=== PATIENT | male | born 1955 | race Caucasian/White ===

== ENCOUNTER 2020-12-12 13:34 | Inpatient (IN) | payer OTHER ==
[~2020-12-12] VITALS: Ht 177.8 cm; Wt 154.8 kg
[2020-12-12] VITALS (7 sets, daily range): BP systolic 114–144; BP diastolic 61–76
--- NOTE | ~2020-12-12 | EMS ---
[address] [address] EMS Patient Care Report Name: CAMERON GRIMALDO Room #: 205-P ADM IN M.R.#: [id number] Admission: 12/12/20 Attend Phys: Horacio Bradley MD Discharge: Date of : 59 Report #: [id number] THIS REPORT FOR: //name// Report Transmitted: 12/17/2020 14:36 EMS Care Summary [place], [place]/[facility] Incident [id number] @ 12/12/2020 13:06 Incident Location [id number] [place] [address] Patient CAMERON GRIMALDO Male, 65 Years 1955 Patient Address [address] [place], [place] [id number] Patient History Chronic Obstructive Pulmonary Disease (COPD),Diabetes,Hypertension (HTN),Tracheostomy,Dysphagia, Patient Allergies Penicillin allergy, Patient Medications Xarelto, Metoprolol, Furosemide, Amiodarone, [place], Chief Complaint AIRWAY BLOCKAGE Disposition Transported Lights/[place] Dispatch Reason Breathing Problem Transported To [facility] Narrative PT FOUND SITTING ON BED IN HIS ROOM AT [facility]. P28 ON SCENE. STAFF ON SCENE STATES THAT PT HAS A BLOCKAGE IN HIS TRACHEOSTOMY. STAFF STATES THEY HAVE ATTEMPTED TO [address] [address] EMS Patient Care Report Name: CAMERON GRIMALDO Room #: 205-P ADM IN .R.#: [id number] Admission: 12/12/20 Attend Phys: Horacio Bradley MD Discharge: Date of : 59 Report #: [id number] SUCTION PT MULTIPLE TIMES. STAFF STATES THAT THE BLOCKAGE IS TOO THICK FOR THEIR MANUAL OR MECHANICAL SUCTION. PT STATES THAT IT FEELS LIKE THE BLOCKAGE IS DEEP IN HIS AIRWAY. PT ABLE TO COUGH BUT IS UNABLE TO DISLODGE THE BLOCKAGE. PT HAS NO VISIBLE TRAUMA. EMS ELECTS TO TRANSPORT EMERGENCY TO CLOSEST FACILITY FOR HIGHER LEVEL OF AIRWAY MANAGEMENT. NO CHANGES NOTED ENROUTE. Initial Vitals @13:24P: 130,R: 22,BP: 200/105,Pain: 0/10,GCS: 15,SpO2: 100,Revised Trauma: 12, Assessments @13:19MENTAL:No Abnormalities,SKIN:No Abnormalities,HEENT:Head/Face: No Abnormalities,LUNG SOUNDS:General: No Abnormalities,ABDOMEN:General: No Abnormalities,PELVIS//GI:No Abnormalities,EXTREMITIES:PULSE:NEURO:No Abnormalities, Impression Foreign Body in Respiratory Tract Procedures @13:19ALS AssessmentResponse: UnchangedSucceeded@PTAOxygen FlowRate: 15 Device: Non Re-breather Mask (NRB) Response: UnchangedSucceeded@13:253-Lead ECGResponse: UnchangedSucceeded@13:21StretcherResponse: Unchanged Timeline REDIPPER,Oxygen FlowRate: 15 Device: Non Re-breather Mask (NRB) Response: UnchangedSucceeded, 13:04,Call Received 13:04,Dispatch Notified 13:06,Dispatched 13:07,En Route 13:17,On Scene 13:19,At Patient 13:19,ALS Assessment,Response: UnchangedSucceeded, 13:21,Stretcher,Response: Unchanged 13:24,Depart Scene 13:24,BP: 200/105 M,PULSE: 130,RR: 22 R,SPO2: 100 Ox,ETCO2: ,BG: ,PAIN: 0,GCS: 15, 13:25,3-Lead ECG,Response: UnchangedSucceeded, 13:30,At Destination 13:47,Call Closed Disclaimer v1.1 Copyright 2020 [employer] This EMS Care Summary contains data elements from the applicable legal record (which may be displayed differently). It is designed to provide pertinent information for the following purposes: continuity of care, clinical quality, [address] [place] [address] EMS Patient Care Report Name: CAMERON GRIMALDO Room #: 205-P ADM IN .R.#: [id number] Admission: 12/12/20 Attend Phys: Horacio Bradley MD Discharge: Date of : 59 Report #: [id number] and state data reporting. The complete legal record is available to ED staff and administrators of the receiving hospital in ES's Patient Tracker. All data is provided "as is."
[2020-12-12 13:57] LABS: HEMOGLOBIN 14.6 gm/dL (14.0-18.0)
[2020-12-12 13:59] LABS: ABSOLUTE NEUTROPHILS 4.1 thou/uL (1.4-8.2); BASOPHILS 1.2 % (0.0-2.0); EOSINOPHILS 6.6 % (0.0-3.0); HEMATOCRIT 45.5 % (42.0-52.0); MCH 31.2 pg (26.0-34.0); MCHC 32.2 g/dL (28.0-37.0); MONOCYTES 13.8 % (1.0-8.0); POLYS 58.4 % (36.0-66.0); RBC 4.69 mil/uL (4.50-6.00); RDW 18.6 % (10.5-14.5)
[2020-12-12 14:05] LABS: ANION GAP 10 mmol/L (7-16); BUN 12 mg/dL (7-18); CALCIUM 8.8 mg/dL (8.5-10.1); CHLORIDE 101 mmol/L (98-107); CO2 29 mmol/L (21-32); CREATININE 1.3 mg/dL (0.7-1.3); GLUCOSE 221 mg/dL (74-106); POTASSIUM 3.8 mmol/L (3.5-5.1); SODIUM 140 mmol/L (136-145)
[2020-12-12 14:15] LABS: ALBUMIN 3.2 g/dL (3.4-5.0); MAGNESIUM 2.2 mg/dL (1.8-2.4); SGOT 18 U/L (15-37); SGPT 18 U/L (30-65); TOTAL BILIRUBIN 0.9 mg/dL (0.2-1.0); TOTAL PROTEIN 8.3 g/dL (6.4-8.2); TROPONIN-I <0.06 ng/mL (<0.06)
--- NOTE | 2020-12-12 15:26 | EKG ---
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 : 1955 Requested By: Grayson Pelletier Order Number: [id number] MD: Gilbert Blanhcard Measurements Intervals [place] Rate: 118 P: VA: QRS: 134 QRSD: 114 T: 6 QT: 381 QTc: 535 Interpretive Statements Atrial fibrillation Low voltage, extremity leads Probable anteroseptal infarct, old Prolonged QT interval No previous ECG available for comparison Electronically Signed On 12-12-2020 15:26:18 CDT by Gilbert Blanchard [email or web address] <ELECTRONICALLY SIGNED> By: Gilbert Blanchard MD, [facility] 12/12/20 1526 1347 46 Gilbert Blanchard MD, FAC /EPI
[2020-12-12 15:28] LABS: BE(vivo) 2.4 mmol/L (-2 to +3); HCO3 29.9 mmol/L (22.0-26.0); PCO2 58.6 mmHg (35.0-45.0); PO2 87.2 mmHg (80.0-100.0); sO2 95.8 % (92.0-98.0)
[2020-12-12 15:29] LABS: pH 7.325 (7.360-7.450)
--- NOTE | 2020-12-12 15:39 | NUR ---
PT SISTER NOW AT BEDSIDE. PT ST[facility] BUT STATES HE WOULD LIKE TO STAY HERE. PT NOTES HE IS STILL BREATHING WELL. RESPIRATIONS ARE EVEN AND UNLABORED. PT REMAINS IN AFIB ON THE MONITOR. PT HAS RLE FRANK WRAPPED, SISTER NOTES PT STRUGGLES WITH CELLULITIS. PT DENIES PAIN OR FURTHER CONCERNS AT THIS TIME.
[2020-12-12 15:45] LABS: PLATELET COUNT 318 thou/uL (150-400)
[2020-12-12 16:01] LABS: ALBUMIN 3.2 g/dL (3.4-5.0); TOTAL PROTEIN 7.9 g/dL (6.4-8.2)
--- NOTE | 2020-12-12 16:08 | NUR ---
UPDATE GIVEN TO SHIV BONILLA THIS TIME AT [facility]
--- NOTE | 2020-12-12 20:03 | NUR ---
RECEIVED PT FROM THE ER. ADMISSION COMPLETED. PT IS AXOX4, PLEASANT. SISTER AT THE BEDSIDE. PT COM[facility]. VSS, AFEBRILE, AFIB ON MONITOR. PT HAS TRACH SHIELD, 15L AT 40%. PT HAS CELLULITIS ON LOWER EXTREMITIES, WITH R LOWER LEG WRAPPED IN FRANK BANDAGE. R LOWER LEG HAS CALF WOUND AND TOP OF FOOT. RT CONSULTED, DR MELENDREZ CONSULTED, DR HO CONSULTED. POC IS TO CONTINUE ABX THERAPY. PT NEEDS SUCTION OF TRACH PRN TO REMOVE SECRETIONS AND PREVENT OCCLUSION. FALL PRECAUTIONS IN PLACE. PT COMMUNICATED UNDERSTANDING OF FALL PRECAUTIONS. NO CONCERNS AT THIS TIME.
[2020-12-13 00:27] VITALS: BP 118/81
--- NOTE | 2020-12-13 02:38 | NUR ---
ASSESSMENTS CHARTED, MEDS CHARTED GIVEN. PATIENT RESTING IN BED DURING SHIFT. PATIENT RECEIVING TRACH CARE AT HAND OFF. PATIENTS SKIN IS RED AND IRRITATED AROUND TRACH. PATIENT SAYS IT IS FROM CHEMO AND RADIATION. PATIENT ABLE TO COUGH LARGE AMOUNTS OF SECRETIONS OUT OF TUBE. PATIENT HAS YOUNKER TO SUCTION HIS OWN MOUTH. PATIENT C/O PAIN TO COCCXY, BOTTOM AND GARCIA-AREA. ZGUARD APPLIED. PATIENT ON STEROID THERAPY. AFIB ON TELEMETRY. FALL PRECAUTIONS IN PLACE DURING SHIFT.
[2020-12-13 03:36] VITALS: BP 145/74
[2020-12-13 05:33] LABS: HEMATOCRIT 40.1 % (42.0-52.0); HEMOGLOBIN 13.5 gm/dL (14.0-18.0); MCH 31.9 pg (26.0-34.0); MCHC 33.6 g/dL (28.0-37.0); MCV 94.9 fL (80.0-100.0); RBC 4.22 mil/uL (4.50-6.00); RDW 18.7 % (10.5-14.5); WBC 5.8 thou/uL (4.0-11.0)
[2020-12-13 05:38] LABS: CALCIUM 8.6 mg/dL (8.5-10.1); MAGNESIUM 1.9 mg/dL (1.8-2.4); POTASSIUM 4.6 mmol/L (3.5-5.1)
[2020-12-13 07:50] VITALS: BP 100/52
[2020-12-13] MEDS ORDERED: ACETAMINOPHEN325 MG PO ×2 (10:06→10:07)
[2020-12-13] MEDS ORDERED: PACERONE 200 M200 M1 PO (10:08)
[2020-12-13] MEDS ORDERED: DULCOLAX STOOL100 M1 PO (10:08)
[2020-12-13] MEDS ORDERED: FUROSEMIDE 40 M40 MG PO (10:09)
[2020-12-13] MEDS ORDERED: FAMOTIDINE20 MG PO (10:09)
[2020-12-13] MEDS ORDERED: GLUCAGON EMERGEN1 M1 SUBQ (10:10)
[2020-12-13] MEDS ORDERED: MIRALAX17 G1 PO (10:11)
[2020-12-13] MEDS ORDERED: MUCINEX600 MG PO (10:12)
[2020-12-13] MEDS ORDERED: HYDROCODON-ACE1 EAC7 PO (10:12)
[2020-12-13] MEDS ORDERED: TOPROL XL100 MG PO (10:13)
[2020-12-13] MEDS ORDERED: THROAT LOZENGE1 EACH PO (10:14)
[2020-12-13] MEDS ORDERED: TRIAMCINOLONE A80 G2 TOP (10:15)
[2020-12-13] MEDS ORDERED: GLUCOSE4 GM PO (10:16)
[2020-12-13] MEDS ORDERED: XARELTO20 MG PO (10:17)
[2020-12-13] MEDS ORDERED: VENTOLIN HFA 1818 GM INH (10:17)
[2020-12-13 12:00] VITALS: BP 118/65
--- NOTE | 2020-12-13 15:52 | 2DMMODE ---
[facility] [place] [address] 2 D/M-MODE ECHOCARDIOGRAM Name: CAMERON GRIMALDO Room #: 205-P ADM IN M.R.#: [id number] Admission: 12/12/20 Attend Phys: Horacio Bradley MD Discharge: Date of : 59 Report #: [id number] THIS REPORT FOR: cc: Alton Sotelo MD, Shyam MD Park, Jin S. MD ~ APPROVED REPORT Study performed: 12/13/2020 14:42:26 EXAM: Comprehensive 2D, Doppler, and color-flow Echocardiogram Patient Location: Bedside Room #: 205 Status: routine BSA: 2.57 HR: 88 bpm BP: 100/52 mmHg Rhythm: Atrial Fibrillation Other Information Study Quality: Good/technically difficult due to morbid obesity and patient has Trach. Indications CHF, Afib, respiratory distress, COPD. 2D Dimensions RVDd: 50.21 mm IVSd: 10.30 (7-11mm) LVOT Diam: 22.05 (18-24mm) LVDd: 63.90 mm PWd: 10.30 (7-11mm) LVDs: 56.11 (25-40mm) Left Atrium: 52.57 (27-40mm) Aortic Root: 38.82 mm Volumes Left Atrial Volume (Systole) Single Plane 4CH: 158.85 mL Single Plane 2CH: 136.57 mL LA ESV Index: 61.00 mL/m2 Aortic Valve AoV Peak Marevl.: 1.23 m/s AO Peak Gr.: 6.03 mmHg LVOT Max P.36 mmHg LVOT Max V: 0.77 m/s [facility] [address] [place] [address] 2 D/M-MODE ECHOCARDIOGRAM Name: CAMERON GRIMALDO Room #: 205-P [facility] [place] [facility]#: [id number] Admission: 12/12/20 Attend Phys: Horacio Bradley, Discharge: Date of : 59 Report #: [id number] MONIK Vmax: 2.39 cm2 Mitral Valve MV Decel. Time: 136.15 ms MV E Max Marvel.: 1.31 m/s Pulmonary Valve PV Peak Marvel.: 0.60 m/s PV Peak Gr.: 1.45 mmHg Tricuspid Valve TR Peak Marvel.: 2.67 m/s RAP Estimate: 15.00 mmHg TR Peak Gr.: 27.00 mmHg PA Pressure: 42.00 mmHg Left Ventricle Left ventricle is dilated. There is normal left ventricular wall thickness. Left ventricular systolic function is moderate to severely decreased. LVEF is 30-35%. This study is not technically sufficient to allow evaluation of the LV diastolic function due to atrial fibrillation. Right Ventricle Right ventricle is dilated. Right ventricle is hypokinetic. Atria Severe biatrial enlargement. Aortic Valve Aortic valve is mildly calcified; trileaflet. No aortic regurgitation is present. There is no aortic valvular stenosis. Mitral Valve The mitral valve is normal in structure. Mild mitral annular calcification. Moderate mitral regurgitation. Tricuspid Valve The tricuspid valve is normal in structure. Moderate tricuspid regurgitation. Estimated PAP is 38mmHg. Pulmonic Valve The pulmonary valve is normal in structure. Mild pulmonic regurgitation. Great Vessels Sinuses are borderline dilated. Ascending aorta is not well [facility] [address] [place] [address] 2 D/M-MODE ECHOCARDIOGRAM Name: CAMERON GRIMALDO Room #: 205-P ADM IN M.R.#: [id number] Admission: 12/12/20 Attend Phys: Horacio Bradley, Discharge: Date of : 59 Report #: [id number] visualized. IVC is dilated and collapses <50% with inspiration. Pericardium There is no pericardial effusion. <Conclusion> Left ventricle is dilated. There is normal left ventricular wall thickness. Left ventricular systolic function is moderate to severely decreased. Right ventricle is dilated. Right ventricle is hypokinetic. Severe biatrial enlargement. Aortic valve is mildly calcified; trileaflet. Moderate mitral regurgitation. Moderate tricuspid regurgitation. Estimated PAP is 38mmHg. <ELECTRONICALLY SIGNED> By: Manish Lopez MD 12/13/20 1552 1552 1552 Manish Lopez MD /SHANELLE
[2020-12-13 16:30] VITALS: BP 109/61
--- NOTE | 2020-12-13 17:07 | NUR ---
Case opened to follow for dc planning. Cm role introduced to the pt and his sister Ira at bedside. Pt is able to communicate by coving his trach. He notes he had a heart issue in August and was hospitalilzed and shortly after had bx with resulting esphogeal cancer diagnosis. He [facility]/rad and chemo. He went to [facility] to 11/26/20. On 11/26/20 he was admitted to [facility] for correction care as he had lost his duplex and was not able to care for himself. He [place] but having an issue with getting documentation from the VA for a monthly VA payment of $140. He has not been able to get that documentation and therefore his medicaid shantel was denied. He does not believe he has applied for disablity. His sister is his primary support person and she believes he did a dpoa for hc at one of the other hospitals. [facility] does not have one on file. [facility] has been updated and can accept him back at [facility]. He is anxious about returning there and feels the trach care has been limited. This is being passed on to their DON for followup. He is agreeable to transfer to the [facility] if they have a bed available. He is service connected 10% and they did cover his stay at LTAC. They will not cover his stay in LTC. ENT to scope him tomorrow to evaluate his tumor and airway for ongoing care recommendations. He is able to walk short distances and needs sba or setup for adl's. He is up to a w/c in the facility. His sister mentioned she may be able to take him home with her if the VA could cover a RN and dme needs. Ultimately he is also agreeable to returning to [facility] with specific instructions for trach care. Will reasses Wednesday. UR nurse has call out to the [facility]'s community resident care technician. PT/OT evals pending. ST has been seeing him at [facility].
[2020-12-13 19:52] VITALS: BP 101/64
--- NOTE | 2020-12-14 04:09 | NUR ---
PT IS ALERT AND ORIENTED X4. LUNGS ARE COARSE ON 15 LITERS PER MASK WITH TRACH FOR SUPPORT. MOUTHS WORDS AND CAN READ THEM CLEARLY. ABDOMEN IS ROUND BOWEL SOUNDS ACTIVE X4. DENIES ANY COMPLAINTS OF PAIN NOTED AT THIS TIME PER NURSING ASSESSEMNT. OXYGEN SATURATION IS 94-96 PERCENT. USES YANKAER YELLOW CONGESTED SPUTUM MAKES AND LUNGS ARE COARSE TOO. WILL PROVIDED ONGOING CARE AND ASSESSMEENT
[2020-12-14 04:35] LABS: HEMATOCRIT 40.6 % (42.0-52.0); HEMOGLOBIN 13.3 gm/dL (14.0-18.0); MCH 31.3 pg (26.0-34.0); MCHC 32.7 g/dL (28.0-37.0); MCV 95.7 fL (80.0-100.0); RBC 4.25 mil/uL (4.50-6.00); RDW 18.6 % (10.5-14.5); WBC 10.1 thou/uL (4.0-11.0)
[2020-12-14 04:47] LABS: CALCIUM 8.5 mg/dL (8.5-10.1); POTASSIUM 4.9 mmol/L (3.5-5.1)
[2020-12-14 05:00] VITALS: BP 119/67
[2020-12-14 08:06] VITALS: BP 136/82
[2020-12-14 12:10] VITALS: BP 106/49
[2020-12-14 16:19] VITALS: BP 117/80
[2020-12-14 19:35] VITALS: BP 130/80
[2020-12-15 04:00] LABS: HEMATOCRIT 42.8 % (42.0-52.0); HEMOGLOBIN 14.1 gm/dL (14.0-18.0); MCH 31.7 pg (26.0-34.0); MCHC 32.9 g/dL (28.0-37.0); MCV 96.2 fL (80.0-100.0); RBC 4.45 mil/uL (4.50-6.00); RDW 19.1 % (10.5-14.5); WBC 10.6 thou/uL (4.0-11.0)
[2020-12-15 04:07] LABS: CALCIUM 8.8 mg/dL (8.5-10.1); CREATININE 0.9 mg/dL (0.7-1.3); MAGNESIUM 2.1 mg/dL (1.8-2.4); POTASSIUM 4.8 mmol/L (3.5-5.1)
[2020-12-15 04:42] VITALS: BP 133/84
[2020-12-15 07:48] VITALS: BP 132/76
[2020-12-15 11:37] VITALS: BP 114/92
[2020-12-15 15:46] VITALS: BP 109/73
[2020-12-15 16:29] VITALS: BP 116/72
--- NOTE | 2020-12-15 16:58 | NUR ---
PATIENT PROGRESSING TOWARDS THE PLAN OF CARE. SISTER VISITING IN THE ROOM OF THE WRITING OF THIS NOTE.
[2020-12-15 19:52] VITALS: BP 140/91
[2020-12-16 03:14] LABS: HEMOGLOBIN 13.8 gm/dL (14.0-18.0); MCH 31.5 pg (26.0-34.0); MCHC 32.8 g/dL (28.0-37.0); MCV 96.1 fL (80.0-100.0); RBC 4.37 mil/uL (4.50-6.00); RDW 19.5 % (10.5-14.5)
[2020-12-16 03:29] LABS: CALCIUM 8.5 mg/dL (8.5-10.1); MAGNESIUM 2.1 mg/dL (1.8-2.4); POTASSIUM 4.7 mmol/L (3.5-5.1)
[2020-12-16 06:08] VITALS: BP 131/93
[2020-12-16 07:45] VITALS: BP 144/84
--- NOTE | 2020-12-16 07:46 | NUR ---
ASSESSMENTS CHARTED, MEDS CHARTED GIVEN. PATIENT RESTING IN RECLINER DURING SHIFT. PATIENT HAS SMALLER AMOUNTS OF MUCUS THAN PREVIOUS CARE DAYS. PATIENT IS NEEDING TO HAVE TRACH CHANGED OUT, NOT KNOWING IF IT WILL BE DONE ON AN OUTPATIENT BASIS OR NOT. PATIENT IS PLANNING ON RETURNING TO [facility]. BUT THEY DO NOT HAVE A RESPIRATORY THERAPIST, SO HE CAN NOT RETURN OF NOW. FALL PRECAUTIONS IN PLACE DURING SHIFT. NOTIFIED THAT PATIENT HAD A BOWEL MOVEMENT DURING THIS MORNING.
--- NOTE | 2020-12-16 10:26 | EKG ---
[address] [address] ELECTROCARDIOGRAM REPORT Name: CAMERON GRIMALDO Room #: 205-P ADM IN M.R.#: [id number] Admission: 12/12/20 Attend Phys: Horacio Bradley MD Discharge: Date of : 59 Report #: [id number] 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1955 Requested By: Horacio Bradley Order Number: [id number] MD: Gilbert Blanchard Measurements Intervals [place] Rate: 116 P: [place]: QRS: 129 QRSD: 102 T: 44 QT: 380 QTc: 528 Interpretive Statements Atrial fibrillation Ventricular premature complex Anterior infarct, old Prolonged QT interval Compared to ECG 12/12/2020 13:47:10 Ventricular premature complex(es) now present Myocardial infarct finding still present Electronically Signed On 12-16-2020 10:26:25 CDT by Gilbert Blanchard [email or web address] <ELECTRONICALLY SIGNED> By: Gilbert Blanchard MD, FAC 12/16/20 1026 0932 0932 Gilbert Blanchard MD, [facility] /EPI
[2020-12-16 12:00] VITALS: BP 124/68
[2020-12-16 16:00] VITALS: BP 119/79
--- NOTE | 2020-12-16 16:20 | NUR ---
ON-GOING ASSESSMENT: CM REVIEWED CHART AND SPOKE WITH ATTENDING. PT IS PROGRESSING TOWARDS DISCHARGE GOALS. PER ATTENDING PT IS LIKELY READY FOR DISCHARGE TOMORROW BACK TO HIS FACILITY. CM MET WITH PATIENT AT THE BEDSIDE AND DISCUSSED LIKELY DISCHARGE TOMORROW BACK TO [facility]. PT REPORTS THAT HE IS AGREEABLE WITH PLAN. CM NOTIFIED RALPH MOORE IN ADMISSIONS AND FAXED UPDATED CLINICAL.
[2020-12-16 19:00] VITALS: BP 122/81
--- NOTE | 2020-12-16 20:02 | NUR ---
ASSUMED CARE SHIFT CHANGE. VSS. TRACH SUCTIONED CHERYL. PT UP TO BATHROOM CHERYL WELL. HR ELEVATED TO 160S PHYSICIAN NOTIFIED, CARD CONSULT. MEDS UPDATED PER CARDIOLOGY. PLAN FOR LARYNGOSCOPY IN AM. PT AND FAMILY AWARE OF POC. DENIES NEEDS. CONT POC. REPORT PASSED TO NOC RN.
[2020-12-17 00:16] VITALS: BP 137/85
[2020-12-17 03:30] VITALS: BP 148/90
[2020-12-17 07:38] VITALS: BP 133/89
[2020-12-17] MEDS ORDERED: ALPRAZOLAM 0.50.5 M1 PO (11:40)
[2020-12-17] MEDS ORDERED: BENICAR20 MG PO (11:40)
[2020-12-17] MEDS ORDERED: ACETYLCYST200 MG/1 M INH (11:40)
[2020-12-17] MEDS ORDERED: CLOPIDOGREL75 MG PO (11:40)
[2020-12-17] MEDS ORDERED: PREDNISONE 20 M20 M1 PO ×2 (11:40→14:55)
[2020-12-17] MEDS ORDERED: BACTRIM DS TAB1 EAC1 PO (11:45)
[2020-12-17 16:06] VITALS: BP 129/85
--- NOTE | 2020-12-17 16:18 | NUR ---
on-going assessment: cm reviewed chart and spoke with attending who reports patient can go back to facility today. ATTENDING STATES SHE SPOKE WITH ENT AND PT IS TO DISCHARGE BACK WITH TRACH SHIELD WITH HUMIDFIER AT FACILITY AND SUCTION 3X/DAY AT LEAST ONE TIME WITH SALINE INTILLATION PER ENT. CM UPDATED LIASON FROM [facility] TO MAKE SURE THEY COULD ACCOMIDATE THIS PRIOR TO DISCHARGING. SHE STATES SHE HAS ASKED AND VERIFIED THEY CAN ACCOMIDATE THIS AT THE FACILITY. CM FAXED UPDATED ENT NOTES FROM TODAY. CM SPOKE WITH PT AND HE IS AGREEABLE TO GO BACK TO FACILITY. CM ALSO SPOKE WITH PATIENTS SISTER NILES WHO IS AGREEABLE WITH THE PLAN. CM FAXED D/C PAPERWORK TO TERESA ROSAS AT [facility]. CHART COPY WAS ORDERED. MAR SPOKE WITH NICA IN RT DUE TO RT NEEDS FOR TRANSPORT AND HE REPORTS PT CAN TRANSPORT ON ROOM AIR AND JUST BE CONNECTED TO HUMIDIFIED OXYGEN ONCE AT FACILITY. CM NOTIFIED LIASON AT [facility] WHO REPORTS SHE WILL ARRANGE TRANSPORT. CM NOTIFIED LIASON OF PTS WEIGHT. CM NOTIFIED BEDSIDE RN TO SEND PT WITH ANY TRACH SUPPLIES THAT WAS SENT FROM FACILITY BACK WITH PT AND SHE AGREES. TRANSPORTATION HAS BEEN ARRANGED BETWEEN 4220-4210 PER LIASON. BEDSIDE RN AND PT AWARE OF TRANSPORT TIME WELL PATIENTS SISTER NILES. PT REPORTS NO FURTHER NEEDS FROM MAR AT THIS TIME. CASE CLOSED.
--- NOTE | 2020-12-17 16:52 | NUR ---
PT ALERT AND ORIENTED. HAD LARYNGOSCOPY THIS AM. VSS. DENIED HAVING PAIN OR DISCOMFORT. ORDERS GIVEN TO DISCHARGE PT TO SNF. REPORT CALLED IN TO MARY. FAMILY AND PT NOTIFIED. NO CONCERNS AT THIS TIME.
--- NOTE | 2020-12-29 10:36 | O ---
[facility] [place] [address] OPERATIVE REPORT Name: CAMERON GRIMALDO Room #: 205-P [facility] IN M.R.#: [id number] Admission: 12/12/20 Attend Phys: Horacio Bradley MD Discharge: 12/17/20 Date of : 59 Report #: [id number] THIS REPORT FOR: cc: Alton Sotelo MD, Shyam MD Williams, Carson MD ~ cc: Alton Sotelo MD DATE OF SERVICE: 12/17/2020 DATE OF : 1955 DATE OF SERVICE: 12/17/2020 PREOPERATIVE DIAGNOSES: 1. Squamous cell carcinoma, larynx. 2. Vgkza-gd-alkxuoa respiratory failure. 3. Tracheostomy dependence. POSTOPERATIVE DIAGNOSES: 1. Squamous cell carcinoma, larynx. 2. Rwjvs-fl-bogvikc respiratory failure. 3. Tracheostomy dependence. PROCEDURE PERFORMED: Direct laryngoscopy. PRIMARY SURGEON: Prateek Perez MD DETAIL MAKER AND FITTER: None. ANESTHESIA: General. COMPLICATIONS: None. ESTIMATED BLOOD LOSS: None. SPECIMENS: None. INDICATIONS: The patient is a 65-year-old male with a diagnosis of squamous cell carcinoma of the larynx from earlier this year, who underwent tracheostomy placement by myself and primary radiotherapy through the [facility] for treatment by his choosing. Recently, he was admitted to [facility] with acute on chronic respiratory failure due to mucus plugging of his tracheostomy tube. This self-resolved; however, it gave us an opportunity to perform a direct laryngoscopy for cancer surveillance and a possible tracheostomy tube change management consultant in the operating room. The patient signed consent [facility] [place] [address] OPERATIVE REPORT Name: CAMERON GRIMALDO Room #: 205-P [facility] IN .R.#: [id number] Admission: 12/12/20 Attend Phys: Horacio Bradley MD Discharge: 12/17/20 Date of : 59 Report #: [id number] in the office and agreed to proceed. DESCRIPTION OF PROCEDURE: The patient was identified in the preoperative area before being transported to the operating room and placed supine on the operating table. At this point, general anesthesia was induced through his already established cuffed tracheostomy tube and a timeout was called to ensure the patient identity and procedure to be performed. Starting first, a Dedo laryngoscope was placed into the oral cavity after placing a tooth guard on his remaining dentition. A full direct laryngoscopy was performed with good resolution of the laryngeal tumor and there was expected findings of laryngeal edema and mucositis secondary to his recent completion of radiotherapy. Pictures were taken for documentation purposes of the supraglottis and the glottis. Additionally, the subglottis was observed using the rigid telescope and documentation of the placement of his already established tracheostomy tube was made. At this point, an investigation was performed to determine if he was a good candidate for tracheostomy tube change management consultant. Given the significant degree of edema and mucositis noticed on his direct laryngoscopy and the need for near future for routine cancer surveillance, I elected to not perform a tracheostomy tube change at this time. At this point, the Dedo laryngoscope was removed from the patient's oral cavity. There was no noted bleeding. He was reversed from general anesthetic and transported to the PACU in stable condition. Please note that all instrument, sponge and needle counts were correct x2. DISPOSITION: The patient may return to the care of the hospitalist that was caring for him preoperatively and they may make the decision on when to discharge the patient. I would like to see him in followup in approximately 6-8 weeks' time and schedule a followup routine direct laryngoscopy, possible biopsy and trach tube change in approximately three to four months from now. Of note, it is important that the patient is able to be intubated from above should he have any other acute or chronic respiratory attack. Once discharged, his facility and/or himself should perform a very thorough trach care and cleaning several times per day to avoid future mucus plugging. <ELECTRONICALLY SIGNED> By: Praetek Perez MD 12/29/20 1036 1044 1106 Prateek Perez MD /nt
== END 2020-12-17 18:47 | DRG 871 ==
LOC: ER 13:34 → 2N 15:21 → EROBS 15:21 → 2N 16:10
PROVIDERS: Emergency Medicine; ADMIT Internal Medicine; ATTEND Internal Medicine
PROC: 0CJS8ZZ Inspection of Larynx, Via Natural or Artificial Opening Endoscopic (ICD-10-PCS; principal; 2020-12-17)
DX: A41.9 Sepsis, unspecified organism (principal); J15.6 Pneumonia due to other Gram-negative bacteria; E43 Unspecified severe protein-calorie malnutrition; J96.22 Acute and chronic respiratory failure with hypercapnia; J96.21 Acute and chronic respiratory failure with hypoxia; J95.09 Other tracheostomy complication; I48.20 Chronic atrial fibrillation, unspecified; Z68.42 Body mass index [BMI] 45.0-49.9, adult; J44.0 Chronic obstructive pulmonary disease with (acute) lower respiratory infection; C32.9 Malignant neoplasm of larynx, unspecified; E78.5 Hyperlipidemia, unspecified; I10 Essential (primary) hypertension; I25.10 Atherosclerotic heart disease of native coronary artery without angina pectoris; I25.5 Ischemic cardiomyopathy; D72.10 Eosinophilia, unspecified; E11.51 Type 2 diabetes mellitus with diabetic peripheral angiopathy without gangrene; I87.2 Venous insufficiency (chronic) (peripheral); E66.09 Other obesity due to excess calories; T17.990A Other foreign object in respiratory tract, part unspecified in causing asphyxiation, initial encounter; X58.XXXA Exposure to other specified factors, initial encounter; Y93.89 Activity, other specified; Y92.89 Other specified places as the place of occurrence of the external cause; Y99.8 Other external cause status; Z88.8 Allergy status to other drugs, medicaments and biological substances; Z95.5 Presence of coronary angioplasty implant and graft; Z88.0 Allergy status to penicillin; Y83.8 Other surgical procedures as the cause of abnormal reaction of the patient, or of later complication, without mention of misadventure at the time of the procedure; Y82.8 Other medical devices associated with adverse incidents
CPT/HCPCS: 10081; 50010; 50101; 62110; 62900; 70005

== ENCOUNTER 2021-02-23 22:58 | Inpatient (IN) | payer OTHER ==
[~2021-02-23] VITALS: Ht 177.8 cm; Wt 98.4 kg
[~2021-02-23 22:58] MED LIST: ACETAMINOPHEN325 MG PO; ACETYLCYST200 MG/1 M INH; ALPRAZOLAM 0.50.5 M1 PO; BACTRIM DS TAB1 EAC1 PO; BENICAR20 MG PO; CLOPIDOGREL75 MG PO; DULCOLAX STOOL100 M1 PO; FAMOTIDINE20 MG PO; FUROSEMIDE 40 M40 MG PO; GLUCAGON EMERGEN1 M1 SUBQ; GLUCOSE4 GM PO; HYDROCODON-ACE1 EAC7 PO; MIRALAX17 G1 PO; MUCINEX600 MG PO; PACERONE 200 M200 M1 PO; PREDNISONE 20 M20 M1 PO; THROAT LOZENGE1 EACH PO; TOPROL XL100 MG PO; TRIAMCINOLONE A80 G2 TOP; VENTOLIN HFA 1818 GM INH; XARELTO20 MG PO
[2021-02-23 22:59] VITALS: BP 168/104
[2021-02-23 23:48] LABS: ABSOLUTE NEUTROPHILS 8.8 thou/uL (1.4-8.2); BASOPHILS 0.8 % (0.0-2.0); EOSINOPHILS 0.8 % (0.0-3.0); HEMATOCRIT 42.9 % (42.0-52.0); HEMOGLOBIN 14.6 gm/dL (14.0-18.0); LYMPHOCYTES 10.2 % (24.0-44.0); MCH 32.3 pg (26.0-34.0); MCHC 34.2 g/dL (28.0-37.0); MCV 94.4 fL (80.0-100.0); MONOCYTES 7.2 % (1.0-8.0); PLATELET COUNT 267 thou/uL (150-400); RBC 4.54 mil/uL (4.50-6.00); RDW 14.6 % (10.5-14.5); WBC 10.9 thou/uL (4.0-11.0)
[2021-02-24 00:07] LABS: CALCIUM 8.9 mg/dL (8.5-10.1); CREATININE 0.7 mg/dL (0.7-1.3); POTASSIUM 4.1 mmol/L (3.5-5.1)
[2021-02-24 00:17] LABS: ALBUMIN 3.5 g/dL (3.4-5.0); TOTAL BILIRUBIN 0.6 mg/dL (0.2-1.0); TOTAL PROTEIN 7.4 g/dL (6.4-8.2)
--- NOTE | 2021-02-24 07:36 | EKG ---
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1955 Requested By: Jose Tamayo Order Number: [id number] MD: Gilbert Blanchard Measurements Intervals [place] Rate: 94 P: [place]: QRS: 120 QRSD: 114 T: 47 QT: 390 QTc: 488 Interpretive Statements Atrial fibrillation Left posterior fascicular block Low voltage, extremity leads Probable anteroseptal infarct, old Compared to ECG 12/16/2020 09:32:35 Left posterior fascicular block now present Low QRS voltage now present Ventricular premature complex(es) no longer present Prolonged QT interval no longer present Myocardial infarct finding still present Electronically Signed On 02-24-2021 7:35:54 CDT by Gilbert Blanchard [email or web address] <ELECTRONICALLY SIGNED> By: Gilbert Blanchard MD, FAC 02/24/21 0735 2328 2328 Gilbert Blanchard MD, [facility] /EPI
[2021-02-24 07:39] VITALS: BP 111/57
[2021-02-24 16:00] VITALS: BP 118/67
[2021-02-24 20:58] VITALS: BP 132/87
[2021-02-24 21:36] VITALS: BP 132/87
[2021-02-24 22:44] VITALS: BP 123/60
[2021-02-25] MEDS ORDERED: VITAMIN D31250 MCG PO (02:38)
[2021-02-25 03:59] VITALS: BP 108/60
[2021-02-25 05:09] LABS: HEMATOCRIT 41.7 % (42.0-52.0); HEMOGLOBIN 13.9 gm/dL (14.0-18.0); MCH 32.5 pg (26.0-34.0); MCHC 33.4 g/dL (28.0-37.0); MCV 97.1 fL (80.0-100.0); RBC 4.29 mil/uL (4.50-6.00); RDW 14.7 % (10.5-14.5); WBC 10.2 thou/uL (4.0-11.0)
[2021-02-25 05:13] LABS: CALCIUM 9.1 mg/dL (8.5-10.1); POTASSIUM 4.8 mmol/L (3.5-5.1)
[2021-02-25 07:00] VITALS: BP 121/67
--- NOTE | 2021-02-25 08:44 | NUR ---
PT ARRIVED VIA CART FROM ER. ADMISSION COMPLETED, MED REC FINISHED, CARE PLAN IN PLACE AND INTERVENTIONS SET. TRACH SHIELD IN PLACE WITH OPTIFLOW AT 50L/60%. PT TOLERATING IT WELL. FREQUENT SUCTION DUE TO COPIOUS AMOUNTS OF SPUTUM. SAMPLE SENT TO LAB. PT CAN AMBULATE WITH SBA. PREVIOUS CELLULITIS SEEN ON BLLE. POC WITH IVF AND IVPB ANTIBIOTICS. PT STATES HE PREFERS TO STAY/SLEEP IN CHAIR VERSUS BED. CONSULTS CALLED IN TO ENT AND PULMONARY.
[2021-02-25 11:27] VITALS: BP 122/84
[2021-02-25] MEDS ORDERED: LEVOFLOXACIN500 MG PO (13:08)
[2021-02-25 14:49] VITALS: BP 118/79
--- NOTE | 2021-02-25 18:49 | NUR ---
Met with patient who admits from [facility]. Patients face sheet in correct. Met with patient who admits with [facility]. Patient with hx of laryengeal cancer. He has a trach. He is A/Ox4. He reports he has transitioned to medicaid bed at [place] [facility]. Plan return. Sp with sister reviewed role of casemgt. Sister reports patient initially at [facility] but as they took more covid patients they transferred patients to other [place] facilities. Plan return updated facility to fax info to Cat liason for [facility].
[2021-02-25 19:34] VITALS: BP 129/84
--- NOTE | 2021-02-26 04:15 | NUR ---
PT MAKING SLOW PROGRESS TOWARDS GOALS. ON OPTIFLO AT 50L/56% OXYGEN VIA TRACH MASK. X1 EPISODE OF SUCTIONING WITH SMALL AMOUNT OF THICK WHITISH SPUTUM. LUNG DIMINISHED IN BOTH UPPER LOBES AND COARSE IN BL LOWER LOBES. CONTINUE TO MONITOR.
[2021-02-26 04:31] VITALS: BP 112/74
[2021-02-26 07:00] VITALS: BP 148/88
[2021-02-26 11:10] VITALS: BP 123/81
[2021-02-26 15:00] VITALS: BP 124/80
--- NOTE | 2021-02-26 15:23 | NUR ---
Case discussed with the care team. Pt aware of possible dc back to [facility] tomorrow. Their liason was updated and the dc production planner if faxing a clinical update.
--- NOTE | 2021-02-26 17:24 | NUR ---
FAXED CLINICAL UPDATES TO [facility]. WILL CONFIRM WITH CAT/LIAISON THAT THEY RECEIVED. [facility] MOBILE [phone]; FAX [phone]
[2021-02-26 20:50] VITALS: BP 143/81
[2021-02-27 02:06] LABS: GLYCOHEMOGLOBIN (HGB A1C) 7.4 % (4.8-5.6)
[2021-02-27 04:45] VITALS: BP 132/82
[2021-02-27 07:15] VITALS: BP 114/78
--- NOTE | 2021-02-27 07:42 | NUR ---
ALERT AND ORIENTED, AFIB ON TELE, DENIES PAIN REMAINS ON TRACH SHIELD, MEDS GIVEN PER AUG, ASSESSMENTS CHARTED, NO ACUTE DISTRESS NOTED, PASSED ON REPORT TO DAY NURSE
[2021-02-27 11:10] VITALS: BP 131/86
--- NOTE | 2021-02-27 15:10 | NUR ---
ATTEMPTED TO CALL REPORT TO INDIRA AT [facility], WAS INFORMED THE NURSE IS AT BREAK AND WILL CALL BACK TO GET REPORT.
--- NOTE | 2021-02-27 15:13 | NUR ---
Pt dcing back to SNF at [facility]. Their liason indicates that [facility]. Pt is agreeable and asked that his sister be updated and dc orders be reviewed with her. [employer] spoke with pt's sister Ira and dc instructions/med list reviewed. She will call Dr. Chris RAMIREZ at [facility] to reschedule his missed appt. She is considering taking him home with her and his is up with a rwalker and able to do his own suction. He is on humidified air per trach shield. Both are aware of 3pm w/c van transport today that was arranged by the SNF. Dc orders faxed and confirmed with the [facility] liason. Chart copy to be sent with the pt and nursing to call report.
--- NOTE | 2021-02-27 15:53 | NUR ---
REPORT CALLED TO MARGARITA [facility].
--- NOTE | 2021-02-27 16:13 | NUR ---
PT DISCHARGED TO [facility], REPORT CALLED TO MARGARITA. IV REMOVED, TELEMETRY BOX REMOVED. TRANSPORTATION PLACED PT IN A WHEELCHAIR WITHOUT INCIDENT AND REMOVED PT FROM UNIT.
== END 2021-02-27 16:27 | DRG 177 ==
LOC: ER 22:58 → EROBS 02-24 01:20 → 2N 02-24 01:20
PROVIDERS: Emergency Medicine; Internal Medicine; Nurse Practitioner Family; ADMIT Hospitalist; ATTEND Hospitalist
PROC: 5A0935A Assistance with Respiratory Ventilation, Less than 24 Consecutive Hours, High Flow/Velocity Cannula (ICD-10-PCS; principal; 2021-02-27)
DX: J69.0 Pneumonitis due to inhalation of food and vomit (principal); J96.21 Acute and chronic respiratory failure with hypoxia; J96.22 Acute and chronic respiratory failure with hypercapnia; R65.11 Systemic inflammatory response syndrome (SIRS) of non-infectious origin with acute organ dysfunction; J44.0 Chronic obstructive pulmonary disease with (acute) lower respiratory infection; I48.91 Unspecified atrial fibrillation; Z20.822 Contact with and (suspected) exposure to COVID-19; I25.5 Ischemic cardiomyopathy; E78.5 Hyperlipidemia, unspecified; I10 Essential (primary) hypertension; E11.51 Type 2 diabetes mellitus with diabetic peripheral angiopathy without gangrene; E66.9 Obesity, unspecified; G47.33 Obstructive sleep apnea (adult) (pediatric); I25.10 Atherosclerotic heart disease of native coronary artery without angina pectoris; C32.9 Malignant neoplasm of larynx, unspecified; K21.9 Gastro-esophageal reflux disease without esophagitis; F41.1 Generalized anxiety disorder; T17.990A Other foreign object in respiratory tract, part unspecified in causing asphyxiation, initial encounter; X58.XXXA Exposure to other specified factors, initial encounter; Z79.01 Long term (current) use of anticoagulants; Z95.5 Presence of coronary angioplasty implant and graft; Z88.0 Allergy status to penicillin; Z88.8 Allergy status to other drugs, medicaments and biological substances; Z93.0 Tracheostomy status; Z68.31 Body mass index [BMI] 31.0-31.9, adult; Z87.891 Personal history of nicotine dependence; Y93.89 Activity, other specified; Y92.89 Other specified places as the place of occurrence of the external cause; Y99.8 Other external cause status; Z79.899 Other long term (current) drug therapy; Z92.3 Personal history of irradiation
CPT/HCPCS: 10081

== ENCOUNTER 2021-03-19 09:39 | Observation (INO) | payer OTHER ==
[~2021-03-19] VITALS: Ht 185.4 cm; Wt 144.7 kg
--- NOTE | ~2021-03-19 | HC ---
[facility] [place] [address] CONSULTATION Name: CAMERON GRIMALDO Room #: 357-[facility] Denis Bill#: [id number] Admission: 03/19/21 Attend Phys: Prateek Perez MD Discharge: 03/21/21 Date of : 59 Report #: [id number] THIS REPORT FOR: cc: Alton Sotelo MD, Shyam MD Althoff,Torrey Fu MD ~ DATE OF SERVICE: 03/21/2021 CHIEF COMPLAINT: Lower extremity ulcerations. HISTORY OF PRESENT ILLNESS: This is a 65-year-old male patient with a history of laryngeal cancer. He is status post tracheostomy and radiation, has lower extremity lymphedema and swelling. He lives in a care facility. I have been asked to see him with regard to wound care. The patient states that he typically has some swelling in his legs, but denies significant pain at this time. MEDICATIONS: Include docusate sodium, amiodarone, metoprolol, rivaroxaban, clopidogrel, alprazolam, olmesartan. SOCIAL HISTORY: Negative for current alcohol or tobacco use. Lives in a nursing care facility. PAST MEDICAL HISTORY: Prior small-bowel obstruction, coronary artery disease, COPD, atrial fibrillation. Laryngeal cancer in 2020. PAST SURGICAL HISTORY: Status post radical laryngectomy and radiation therapy. FAMILY HISTORY: Noncontributory. REVIEW OF SYSTEMS: CONSTITUTIONAL: Pain, fever, chills, weight loss. NEUROLOGICAL: The patient denies focal weakness, numbness, tingling. EYES: The patient denies visual changes. ENT: The patient has a tracheostomy. PULMONARY: The patient denies cough, shortness of breath. GASTROINTESTINAL: No nausea or abdominal pain. ORTHOPEDIC: The patient complains of swelling and some pain in the lower extremities. Others systems in a 14-point review of systems are negative. PHYSICAL EXAMINATION: VITAL SIGNS: At this time include temperature 36.5, pulse 84, respiration of 18, blood pressure 120/70. GENERAL: This is a chronically ill-appearing male patient who appears in minimal distress. [facility] [address] [place] [address] CONSULTATION Name: CAMERON GRIMALDO Room #: 357-[facility] M..#: [id number] Admission: 03/19/21 Attend Phys: Prateek Perez MD Discharge: 03/21/21 Date of : 59 Report #: [id number] HEENT: Head is normocephalic. Nose and throat are clear. NECK: Supple. There is a tracheostomy in place with trach shield. LUNGS: Diminished. HEART: Regular rate and rhythm. ABDOMEN: Obese, soft, nontender. EXTREMITIES: Lower extremities demonstrate bilateral lower extremity edema, mild erythema and a few scattered venous ulcerations. CLINICAL IMPRESSION: 1. Bilateral lower extremity lymphedema with venous dermatitis and cellulitis. 2. Laryngeal cancer, status post radical laryngectomy and radiation. 3. Coronary artery disease. 4. Atrial fibrillation. RECOMMENDATIONS: At this point in time, I recommend AmLactin lotion, Xeroform, ABD, Kerlix, Robinson wrapped from toes to knees daily. We will check an arterial Doppler. He is currently on antibiotics. I appreciate being asked to see him in the consultation. By: [phone] Torrey Chung MD /nt
[~2021-03-19 09:39] MED LIST changes: +IPRAT-ALBUT 0.5-3 ML INH; +LEVOFLOXACIN500 MG PO; +PLAVIX 75 MG TA75 MG PO; +VITAMIN D3125 MC2 PO; +VITAMIN D31250 MCG PO; +XANAX 0.5 MG0.5 M1 PO
[2021-03-19 18:55] VITALS: BP 115/76
[2021-03-19 20:00] VITALS: BP 109/70
[2021-03-19 23:52] VITALS: BP 110/61
[2021-03-20 04:00] VITALS: BP 116/79
[2021-03-20 07:12] VITALS: BP 102/64
--- NOTE | 2021-03-20 07:25 | NUR ---
PT MAKING PROGRESS TOWARDS GOALS. PT ON T-TUBE OVERNIGHT. HUMIDIFIED AIR OXYGEN AT 35% FIO2. PT ABLE TO REMOVE T-TUBE TO TALK AND AMBULATE TO TOILET. SBA PROVIDED. PT ON TOILET FOR APPROXIMATELY 5 MINUTES AND DENIED FEELING SOA (WAS ON ROOM AIR). INITIAL TRACH SUCTIONING HAS BLOOD TINGED FROTHY SPUTUM, SMALL AMOUNT. SUBSEQUENT SUCTIONS, THERE WAS WHITISH/YELLOWISH SPUTUM, OCCASIONALLY THICK. NO FURTHER BLOOD TINGE NOTED. GOOD STRONG AND PRODUCTIVE COUGH. INFORMED RN AND PT TO ASK RT IF PT COULD HAVE EXACT MODEL OF TRACH THAT HE HAS SO TO LEARN HOW TO CHANGE THE INNER CANNULA AND TO BE ABLE TO SEE HOW TO PROPERLY CARE FOR IT. THIS WAS A REQUEST OF THE PT.
--- NOTE | 2021-03-20 07:43 | O ---
[address] [address] OPERATIVE REPORT Name: CAMERON GRIMALDO Room #: 357-P [facility] M.R.#: [id number] Admission: 03/19/21 Attend Phys: Prateek Perez MD Discharge: Date of : 59 Report #: [id number] THIS REPORT FOR: cc: Alton Sotelo MD, Shyam MD Williams, Carson MD ~ cc: Alton Sotelo MD DATE OF SERVICE: 03/19/2021 PREOPERATIVE DIAGNOSES: 1. Squamous cell carcinoma of the larynx. 2. Tracheostomy tube dependence. 3. Chronic obstructive pulmonary disease. 4. Nicotine dependence. POSTOPERATIVE DIAGNOSES: 1. Squamous cell carcinoma of the larynx. 2. Tracheostomy tube dependence. 3. Chronic obstructive pulmonary disease. 4. Nicotine dependence. PROCEDURES PERFORMED: 1. Direct laryngoscopy. 2. Flexible bronchoscopy. 3. Tracheostomy tube change in the operating room. PRIMARY SURGEON: Prateek Perez MD TECHNICAL TESTING ENGINEER: None. ANESTHESIA: General. COMPLICATIONS: None. ESTIMATED BLOOD LOSS: None. IMPLANTS: None. DRAINS: None. SPECIMENS: None. INDICATIONS FOR PROCEDURE: The patient is a 65-year-old male with a history of squamous cell carcinoma of the larynx which was diagnosed by myself earlier this year. At that time, he underwent emergent tracheotomy due to airway compromise [address] [address] OPERATIVE REPORT Name: CAMERON GRIMALDO Room #: 357-P [facility].#: [id number] Admission: 03/19/21 Attend Phys: Prateek Perez MD Discharge: Date of : 59 Report #: [id number] and subsequently underwent primary radiotherapy through the [facility] for his care. Post treatment, he still had a cuffed tracheostomy tube that was in place given he had a very unique airway and now is at the point of consideration of decannulation. However, given his overall difficult airway status and COPD, we have elected to go very slowly and combine an airway surveillance examination with a tracheostomy tube change in the operating room as detailed above. He signed consent in the office. DESCRIPTION OF PROCEDURE: The patient was identified in the preoperative area before being transported to the operating room and placed supine on the operating table. At this point, general anesthesia was induced using his already in place cuffed flexible Bivona tracheostomy tube. Once adequate anesthesia was established, the table was rotated 90 degrees. A tooth guard was inserted and a Dedo laryngoscope was introduced into the oral cavity. A full oral cavity and oropharyngeal examination was performed that did not show any evidence of any obvious malignancy. Next, the laryngoscope was used to inspect the supraglottis and glottis, had visualized the vocal cords. At this point, the rigid telescope was inserted through the laryngoscope and pictures were taken of the previous tumor site. There was no evidence of any recurrent disease. At this point, the camera was switched to the degree and this was passed between the patient's vocal cords into the immediate subglottis. Visualization of the top edge of the in place tracheostomy tube was performed and pictures were taken to confirm its presence and location. Next, I elected to intubate the patient from above through the laryngoscope using a 6-0 cuffed endotracheal tube. This was passed through the laryngoscope between the patient's vocal cords and inflated and kept in position just proximal to his tracheostomy tube. Attention was then turned to the tracheostomy tube. It was removed from the patient's neck and visualization through the tracheostomy tract revealed the endotracheal tube in the lumen of the trachea in a very well matured and established tracheostomy tube tract. At this point, a 6-0 XLT proximal cuffless Shiley was inserted through the tracheostomy tube tract into the trachea and a flexible bronchoscope was used to visualize intraluminal placement and visualized directly the carlos of the airway. At this point, the bronchoscope was removed, trach ties were applied. The patient was reversed from anesthesia and extubated after showing signs of good ventilation. All instrument, sponge and needle counts were correct x2. The patient was transported to the PACU in stable condition having suffered no untoward event. DISPOSITION: The patient will be kept overnight for observation and airway support with humidified trach collar around the clock. Beginning tomorrow, we will start tracheostomy capping trials and perform these for a minimum of 48-[address] [address] OPERATIVE REPORT Name: CAMERON GRIMALDO Room #: 357-P [facility] Denis CrowleyRNorman#: [id number] Admission: 03/19/21 Attend Phys: Prateek Perez MD Discharge: Date of : 59 Report #: [id number] hours before consideration of decannulation which can occur in the office. They may call our office with any issues. <ELECTRONICALLY SIGNED> By: Prateek Perez MD 03/20/21 0743 [id number] Prateek Perez MD /nt
[2021-03-20 15:42] VITALS: BP 88/52; BP 92/54
--- NOTE | 2021-03-20 15:54 | NUR ---
INITIAL ASSESSMENT: YEIMI reviewed chart and spoke with nursing and attending physician. Pt with hx laryngeal cancer. Pt had trach replaced yesterday by ENT and has orders to discharge back to [facility] today. YEIMI faxed clinical info and discharge ppwk to [facility] liaison. Confirmed pt can return to [facility] today. Facility arranged transportation for [id number]. YEIMI met with pt at bedside. Introduced role of SW. Pt is alert/orientated x 4. Pt is agreeable with discharge plan, but states he needs to have education on his new trach. Pt now has a 6.0 XLT proximal cuffless trach in place. YEIMI discussed with RT. YEIMI updated [facility] liaison to assure that they are aware of pt's new trach and need for supplies. Transportation postponed to 1600. YEIMI discussed with nursing. Pt with lower extremity weeping. Nursing contacted ENT. Hospitalist and wound care to be consulted. ST ramboal ordered. Discharge cancelled for today. Pt is aware. YEIMI updated [facility] liaison. Transportation cancelled. Plan is for pt to discharge to [facility] when pt is medically stable. YEIMI is following to assist as needed with discharge planning.
[2021-03-20 19:36] VITALS: BP 102/61
[2021-03-21 03:56] VITALS: BP 114/74
--- NOTE | 2021-03-21 08:08 | NUR ---
PT MAKING PROGRESS TOWARDS GOALS. PT WEARING TRACH MASK AT 35% FIO2 OVER NIGHT. WILL REMOVE IT AND PLUG HIS TRACH WITH HIS FINGER TO SPEAK. GIVES "THUMBS UP" WHEN ASKED HOW HE IS FEELING AND BREATHING. SBA TO BE UP TO TOILET.
[2021-03-21 08:35] VITALS: BP 123/70
[2021-03-21 08:51] VITALS: BP 123/70
--- NOTE | 2021-03-21 10:51 | NUR ---
Arrived at pt room today with orders to eval/tx for lymphedema- LE's already wrapped by Carlo today with wounds tended. Pt felt wraps comfortable. Recommend orders for wound care and wrapping once pt returns to [facility]TC which wound team has agreed to enter. No further intervention from PT for lymphedema services is indicated.
[2021-03-21] MEDS ORDERED: LASIX 20 MG TAB20 MG PO (14:12)
[2021-03-21] MEDS ORDERED: DOXYCYCLINE HYC50 MG PO (14:12)
--- NOTE | 2021-03-21 14:29 | NUR ---
DISCHARGE NOTE: YEIMI reviewed chart and spoke with nursing and attending physician. Wound care consult/lymphedema consult completed today. Pt is medically stable to discharge to [facility] today. YEIMI met with pt at bedside to discuss discharge plan. wagner ordered STAT to assist pt with speaking valve. Pt is agreeable with discharge plan. YEIMI faxed updated clinical info and discharge ppwk to the facility and spoke with Teresa in admissions, to discuss pt's discharge. [facility] does not have transportation available today. They are able to accept pt back today. YEIMI arranged w/c van transportation through [employer] for [phone] last picker time. YEIMI notified Director of Case Mgmt of transportation arrangements. Chart copy has been completed. Nursing provided number for report and time for transportation. YEIMI updated [facility] of transportation time. No additional SW needs identified at this time, but is available to assist should needs arise.
--- NOTE | 2021-03-21 15:23 | NUR ---
ASSUMED PATIENT CARE AT 0700. A/O X4. ANXIOUS. DENIES PAIN. BIE DRESSING CHANGED PER ORDER. WOUND PICS TOOK. WILL DC TO SNF AT 1700.
== END 2021-03-21 17:26 ==
LOC: OR 09:39 → 3W 16:26 → OR 16:27 → 3W 16:27 → OR 16:32 → 3W 03-21 17:26
PROVIDERS: ADMIT Otolaryngology; ATTEND Otolaryngology
DX: C32.9 Malignant neoplasm of larynx, unspecified (principal); Z20.822 Contact with and (suspected) exposure to COVID-19; J44.9 Chronic obstructive pulmonary disease, unspecified; I48.91 Unspecified atrial fibrillation; F17.200 Nicotine dependence, unspecified, uncomplicated; Z79.82 Long term (current) use of aspirin; Z93.0 Tracheostomy status; Z79.899 Other long term (current) drug therapy
CPT/HCPCS: 10879; 50010; 50101; 58938; 62110; 62900; 65129; 70005